=== PATIENT | male | born 1995 | race Caucasian/White ===

== ENCOUNTER 2018-02-20 09:49 | Emergency (ER) | payer OTHER ==
[~2018-02-20] VITALS: Ht 170.2 cm; Wt 69.0 kg
[~2018-02-20 09:49] MED LIST: AMOX875T PO
[2018-02-20 10:00] VITALS: BP 136/85; PULSE 92; RESP 16; TEMP 98.2; O2SAT 98
--- NOTE | 2018-02-20 10:35 | PD ---
HPI Chief Complaint: Oral / Dental Pain or Problem Time Seen by Provider: 10:25 Travel History International Travel<30 days: No Contact w/Intl Traveler<30days: No Traveled to known affect area: No History of Present Illness HPI 23 year old male presents to the emergency department for evaluation of a lesion to his lower lip that has been intermittent for approximately 2 months. He reports associated pain. No fevers or chills. He has no chronic medical problems and takes no prescribed medications. Patient states if his teeth rub it or if he accidently bites it, it will worsen his pain. Mild severity. PFSH Past Medical History Medical History: Denies Significant Hx Diminished Hearing: No Tetanus Vaccination: Unknown Influenza Vaccination: No ?: Not Social History Alcohol Use: Yes (occ) Tobacco Use: Yes (1ppd) Substance Use: Yes (Smokes pot) Allergies-Medications (Allergen,Severity, Reaction): Coded Allergies: No Known Allergies (Unverified Adverse Reaction, Unknown, 02/20/18) Reported Meds & Prescriptions Reported Meds & Active Scripts Active No Active Prescriptions or Reported Medications Review of Systems Except as stated in HPI: all other systems reviewed are Neg Physical Exam Narrative GENERAL: Well-nourished, well-developed male patient, ambulatory. Afebrile. SKIN: Focused skin assessment warm/dry. HEAD: Normocephalic. Atraumatic. ENT: Mucosa pink and moist. No erythema or exudates. No uvular edema. No uvular , palatal, or tonsillar deviation. Airway patent. Nasal turbinates appear normal without nasal blood, purulent drainage or septal hematoma. Bilateral tympanic membranes clear without erythema or perforation. Patient has vesicle to inner lower lip with mild surrounding erythema. EYES: No scleral icterus. No injection or drainage. NECK: Supple, trachea midline. No JVD or lymphadenopathy. CARDIOVASCULAR: Regular rate and rhythm without murmurs, gallops, or rubs. RESPIRATORY: Breath sounds equal bilaterally. No accessory muscle use. Lung sounds are clear to auscultation. MUSCULOSKELETAL: No cyanosis, or edema. Data Data Last Documented VS Vital Signs Date Time Temp Pulse Resp B/P (MAP) Pulse Ox O2 Delivery O2 Flow Rate FiO2 02/20/18 10:00 98.2 92 16 136/85 (102) 98 MDM Medical Decision Making Medical Screen Exam Complete: Yes Emergency Medical Condition: Yes Medical Record Reviewed: Yes Differential Diagnosis herpes simplex vs. canker sore vs. lesion Narrative Course 23 year old male presents to the emergency department for evaluation of a lesion to his lower lip. Physical exam is consistent with a cold sore. He will be given a short-term prescription for acyclovir. He is to follow up with a primary care physician return here for any acute worsening of symptoms. Diagnosis Primary Impression: Cold sore Patient Instructions: General Instructions, Oral Herpes Simplex Virus Infections (ED) Additional Instructions: Take acyclovir as directed until gone. Over the counter Ibuprofen as needed every 6-8 hours for pain. Follow up with a primary care physician. Return to the emergency department for any acute, worsening of symptoms. Med/Other Pt SpecificInfo: Prescription(s) given Scripts Acyclovir (Acyclovir) 200 Mg Cap 200 MG PO 5 TIMES A DAY for Mgmt Viral Infection for 5 Days, CAP 0 Refills Prov: Pati Vu 02/20/18 Disposition: 01 DISCHARGE HOME Condition: Stable Pati uV Feb 20, 2018 10:35
[2018-02-20] MEDS ORDERED: ACYC200C66 PO (10:47)
== END 2018-02-20 11:02 | disposition home or self-care (01) ==
LOC: PHEFT 09:49
DX: B00.1 Herpesviral vesicular dermatitis (principal); F17.210 Nicotine dependence, cigarettes, uncomplicated; F12.90 Cannabis use, unspecified, uncomplicated
CPT/HCPCS: 99283